=== PATIENT | female | born 1990 | race African-American/Black ===

== ENCOUNTER 2021-09-15 16:15 | Emergency (ER) | payer BC, MEDICAID ==
[~2021-09-15] VITALS: Ht 162.6 cm; Wt 62.6 kg
--- NOTE | 2021-09-15 16:41 | NUR ---
Dr Carvalho seen and examined the pt.
[2021-09-15] MEDS ORDERED: ACETAMINOPHEN ES 500 MG TABLET ONE (16:42)
[2021-09-15] MEDS ORDERED: ACETAMINOPHEN ES 500 MG TABLET PO ONE (16:45)
[2021-09-15] MEDS ORDERED: IBUP-1955 PO (18:09)
[2021-09-15] MEDS ORDERED: IBUPROFEN 800 MG TABLET ONE (18:12)
[2021-09-15] MEDS ORDERED: IBUPROFEN 800 MG TABLET PO ONE (18:15)
[2021-09-15] MEDS ORDERED: ALBU6.7H9 INH (18:24)
--- NOTE | 2021-09-15 18:31 | NUR ---
Patient discharged to home in stable condition. Written and verbal after care instructions given. Patient verbalizes understanding of instructions. Stressed follow up or return to ER for worsening s/s.
[2021-09-15 18:33] VITALS: BP 102/67
== END 2021-09-15 18:35 | disposition home or self-care (01) ==
LOC: ER 16:19
DX: S13.4XXA Sprain of ligaments of cervical spine, initial encounter (principal); S06.9X9A Unspecified intracranial injury with loss of consciousness of unspecified duration, initial encounter; V49.50XA Passenger injured in collision with unspecified motor vehicles in traffic accident, initial encounter; Y92.410 Unspecified street and highway as the place of occurrence of the external cause; M54.9 Dorsalgia, unspecified; J45.909 Unspecified asthma, uncomplicated; R40.2362 Coma scale, best motor response, obeys commands, at arrival to emergency department; R40.2142 Coma scale, eyes open, spontaneous, at arrival to emergency department; R40.2252 Coma scale, best verbal response, oriented, at arrival to emergency department
CPT/HCPCS: 70450; A4663; A9150